=== PATIENT | female | born 1960 | race Caucasian/White ===

== ENCOUNTER 2023-10-16 06:22 | Day surgery (SDC) | payer OTHER ==
[~2023-10-16 06:22] MED LIST: Lactated Ringers 1,000 ML IV SCH; ceFAZolin 2 GM in Sodium Chloride 0.9% 50 ML IV ONE
[2023-10-16] MEDS ORDERED: Bupivacaine 0.5% 30 ML SDV ONE (07:18)
[2023-10-16] MEDS ORDERED: ceFAZolin 1 GM Vial ONE ×2 (07:18→08:41)
[2023-10-16] MEDS ORDERED: Naloxone 0.4 MG/ML SDV IVPUSH PRN (07:22)
[2023-10-16] MEDS ORDERED: Morphine 2 MG/ML SYRINGE IVPUSH PRN (07:22)
[2023-10-16] MEDS ORDERED: Metoclopramide 10 MG/2 ML SDV IVPUSH PRN (07:22)
[2023-10-16] MEDS ORDERED: fentaNYL 50 MCG/ML SDV IVPUSH PRN (07:22)
[2023-10-16] MEDS ORDERED: HYDROmorphone 1 MG/ML Syringe IVPUSH PRN (07:22)
[2023-10-16] MEDS ORDERED: Ondansetron 4 MG/2 ML SDV IVPUSH PRN (07:22)
[2023-10-16] MEDS ORDERED: droPERidol 5 MG/2 ML SDV IVPUSH PRN (07:22)
[2023-10-16] MEDS ORDERED: Albuterol 0.083% 2.5 MG/3 ML Neb Soln NEB PRN (07:22)
[2023-10-16] MEDS ORDERED: Propofol 200 MG/20 ML SDV ONE (07:32)
[2023-10-16] MEDS ORDERED: fentaNYL 100 MCG/2 ML SDV ONE (07:32)
[2023-10-16] MEDS ORDERED: Bupivacaine 0.25% 30 ML SDV ONE (07:34)
[2023-10-16] MEDS ORDERED: Ropivacaine 0.5% 5 MG/ML 30 ML SDV ONE (07:34)
[2023-10-16] MEDS ORDERED: Water For Injection, Sterile 20 ML ONE (07:51)
[2023-10-16] MEDS ORDERED: dexmedeTOMIDine HCl 200 MCG/2 ML SDV ONE (08:00)
[2023-10-16] MEDS ORDERED: ceFAZolin 2 GM Vial ONE (08:09)
[2023-10-16] MEDS ORDERED: Dexamethasone 4 MG/ML 5 ML MDV ONE (08:11)
[2023-10-16] MEDS ORDERED: Ondansetron 4 MG/2 ML SDV ONE (08:11)
[2023-10-16] MEDS ORDERED: Phenylephrine HCl 0.5 MG/5 ML AMP ONE (08:19)
[2023-10-16] MEDS ORDERED: Ketorolac 30 MG/ML SDV ONE (08:42)
[2023-10-16] MEDS ORDERED: Morphine 4 MG/ML Syringe IVPUSH PRN (09:04)
[2023-10-16] MEDS ORDERED: Acetaminophen/HYDROcodone 325-5 MG Tab PO PRN (09:04)
[2023-10-16] MEDS ORDERED: Lactated Ringers 1,000 ML IV SCH (09:15)
== END 2023-10-16 10:05 | disposition home or self-care (01) ==
LOC: MW.SDS 06:22
PROVIDERS: ATTEND Surgery
DX: K43.6 Other and unspecified ventral hernia with obstruction, without gangrene (principal); F32.A Depression, unspecified; F41.9 Anxiety disorder, unspecified; F17.200 Nicotine dependence, unspecified, uncomplicated; Z79.899 Other long term (current) drug therapy; Z90.49 Acquired absence of other specified parts of digestive tract; Z88.8 Allergy status to other drugs, medicaments and biological substances
CPT/HCPCS: 49592; 64488; J0131; J0665; J0690; J1100; J1885; J2371; J2405; J2704; J2795; J3010; J7120; J3490